=== PATIENT | female | born 2000 | race Caucasian/White ===

== ENCOUNTER 2022-05-05 21:20 | Emergency (ER) | payer MEDICAID ==
[~2022-05-05] VITALS: Ht 170.2 cm; Wt 79.4 kg
[2022-05-05 21:30] VITALS: BP 140/95
--- NOTE | 2022-05-05 21:46 | ED General ---
General Chief Complaint: Rect Problems Stated Complaint: RECTAL BLEEDING Source of Information: Patient Exam Limitations: No Limitations History of Present Illness Date Seen by Provider: May 05, 2022 Time Seen by Provider: 21:35 Initial Comments 21-year-old female presents to the ED with complaints of rectal bleeding starting at 9 PM. States she went to the bathroom thinking that she had to have a bowel movement, and passed a lot of bright red blood. Denies history of rectal bleeding. Denies constipation. States she had a normal soft bowel movement about 4 hours before. Denies black tarry stools, states fevers stools have been brown. Denies fevers, dizziness, chest pain, shortness of air, abdominal pain, nausea/vomiting, diarrhea, constipation. Patient's heart rate is elevated, patient states her heart rate is always greater than 100. Allergies and Home Medications Patient Home Medication List Home Medication List Reviewed: Yes Review of Systems Review of Systems Constitutional: see HPI Past Iswkyog-Hikxom-Suaxwt Hx Patient Social History Tobacco Use?: No Use of E-Cig and/or Vaping dev: No Substance use?: No Alcohol Use?: No Immunizations Up To Date Influenza Vaccine Up-to-Date: Yes; Up-to-Date First/Initial COVID19 Vaccinat: 2020 Second COVID19 Vaccination Hardeep: 2020 Third COVID19 Vaccination Date: NONE COVID19 Vaccine [employer]: Habbits Physical Exam Vital Signs Vital Signs - First Documented 05/05/22 21:30 Temp 36.2 Pulse 121 Resp 20 B/P (MAP) 140/95 (110) Pulse Ox 100 O2 Delivery Room Air Capillary Refill : Height, Weight, BMI Height: '" Weight: lbs. oz. kg; BMI Method: General Appearance: No Apparent Distress, WD/WN Neck: Normal Inspection, Supple Respiratory: Lungs Clear, Normal Breath Sounds, No Accessory Muscle Use, No Respiratory Distress Cardiovascular: No Edema, No Gallop, No JVD, No Murmur, Tachycardia Gastrointestinal: Normal Bowel Sounds, No Organomegaly, No Pulsatile Mass, Non Tender, Soft Rectal: Normal Exam, Normal Rectal Tone, Heme Positive Stool; No Hemorrhoids, No Mass, No Tenderness Extremity: Normal Inspection, Normal Range of Motion Neurologic/Psychiatric: Alert, Oriented x3, Normal Mood/Affect Skin: Normal Color, Warm/Dry Progress/Results/Core Measures Suspected Sepsis SIRS Temperature: Pulse: Respiratory Rate: Laboratory Tests 05/05/22 22:35: White Blood Count 5.8 Blood Pressure / Mean: Laboratory Tests 05/05/22 22:35: Creatinine 0.77, Platelet Count 220, Total Bilirubin 0.3 Results/Orders Lab Results Laboratory Tests Test 05/05/22 22:35 Range/Units White Blood Count 5.8 4.3-11.0 10^3/uL Red Blood Count 4.71 3.80-5.11 10^6/uL Hemoglobin 13.3 11.5-16.0 g/dL Hematocrit 40 35-52 % Mean Corpuscular Volume 84 80-99 fL Mean Corpuscular Hemoglobin 28 25-34 pg Mean Corpuscular Hemoglobin Concent 34 32-36 g/dL Red Cell Distribution Width 13.0 10.0-14.5 % Platelet Count 220 130-400 10^3/uL Mean Platelet Volume 10.5 9.0-12.2 fL Immature Granulocyte % (Auto) 0 % Neutrophils (%) (Auto) 52 42-75 % Lymphocytes (%) (Auto) 37 12-44 % Monocytes (%) (Auto) 10 0-12 % Eosinophils (%) (Auto) 2 0-10 % Basophils (%) (Auto) 1 0-10 % Neutrophils # (Auto) 3.0 1.8-7.8 10^3/uL Lymphocytes # (Auto) 2.1 1.0-4.0 10^3/uL Monocytes # (Auto) 0.6 0.0-1.0 10^3/uL Eosinophils # (Auto) 0.1 0.0-0.3 10^3/uL Basophils # (Auto) 0.0 0.0-0.1 10^3/uL Immature Granulocyte # (Auto) 0.0 0.0-0.1 10^3/uL Sodium Level 143 135-145 MMOL/L Potassium Level 3.5 L 3.6-5.0 MMOL/L Carbon Dioxide Level 21 21-32 MMOL/L Anion Gap 10 5-14 MMOL/L Blood Urea Nitrogen 9 7-18 MG/DL Creatinine 0.77 0.60-1.30 MG/DL Estimat Glomerular Filtration Rate 114 BUN/Creatinine Ratio 12 Glucose Level 74 70-105 MG/DL Calcium Level 9.4 8.5-10.1 MG/DL Corrected Calcium 9.1 8.5-10.1 MG/DL Total Bilirubin 0.3 0.1-1.0 MG/DL Aspartate Amino Transf (AST/SGOT) 17 5-34 U/L Alanine Aminotransferase (ALT/SGPT) 18 0-55 U/L Alkaline Phosphatase 94 40-136 U/L Total Protein 7.8 6.4-8.2 GM/DL Albumin 4.4 3.2-4.5 GM/DL My Orders Orders - AURELIO LANDAVERDE APRN Occult Blood Stool (05/05/22 21:44) Cbc With Automated Diff (05/05/22 21:55) Comprehensive Metabolic Panel (05/05/22 21:55) Vital Signs/I&O 05/05/22 21:30 Temp 36.2 Pulse 121 Resp 20 B/P (MAP) 140/95 (110) Pulse Ox 100 O2 Delivery Room Air Capillary Refill : Progress Note #1: Time: 21:45 Progress Note Patient seen and evaluated, resting comfortably in bed, no acute distress. Bedside fecal occult positive. Will obtain baseline labs, CBC, CMP. If normal, will refer to primary to get a scope. Progress Note #2: Time: 23:08 Progress Note Labs reviewed. Departure Impression Primary Impression: Rectal bleeding Disposition: HOME, SELF-CARE Condition: Stable Departure-Patient Inst. Decision time for Depature: 23:09 Referrals: [facility] ([facility]Family) Primary Care Physician Patient Instructions: Bloody Stools, Adult ED, Clear Liquid Diet Add. Discharge Instructions: Stay on a clear liquid diet for the next 24 hours to give your bowels a rest. You may expect to see more bleeding during the next couple of bowel movements. Return if you have an increase in bleeding, passing blood clots, dizziness, shortness of breath, chest pain, or any other new, concerning or worsening symptoms. Follow-up with your primary care provider, you may need a scope if this continues. All discharge instructions reviewed with patient and/or family. Voiced understanding. AURELIO LANDAVERDE APRN May 05, 2022 21:46
[2022-05-05 22:42] LABS: BASOPHILS % (AUTO) 1 % (0-10); EOSINOPHILS # (AUTO) 0.1 10^3/uL (0.0-0.3); EOSINOPHILS % (AUTO) 2 % (0-10); HEMATOCRIT 40 % (35-52); HEMOGLOBIN 13.3 g/dL (11.5-16.0); LYMPHOCYTES # (AUTO) 2.1 10^3/uL (1.0-4.0); LYMPHOCYTES % (AUTO) 37 % (12-44); MEAN CORPUSCULAR HEMOGLOBIN 28 pg (25-34); MEAN CORPUSCULAR HGB CONC 34 g/dL (32-36); MEAN CORPUSCULAR VOLUME 84 fL (80-99); MEAN PLATELET VOLUME 10.5 fL (9.0-12.2); MONOCYTES # (AUTO) 0.6 10^3/uL (0.0-1.0); MONOCYTES % (AUTO) 10 % (0-12); NEUTROPHILS % (AUTO) 52 % (42-75); PLATELET COUNT 220 10^3/uL (130-400); WHITE BLOOD COUNT 5.8 10^3/uL (4.3-11.0)
[2022-05-05 22:56] LABS: ALBUMIN 4.4 GM/DL (3.2-4.5)
[2022-05-05 22:57] LABS: POTASSIUM 3.5 MMOL/L (3.6-5.0)
[2022-05-05 22:58] LABS: CALCIUM 9.4 MG/DL (8.5-10.1)
[2022-05-05 22:59] LABS: TOTAL PROTEIN 7.8 GM/DL (6.4-8.2)
[2022-05-05 23:01] LABS: BILIRUBIN,TOTAL 0.3 MG/DL (0.1-1.0)
[2022-05-05 23:03] LABS: CREATININE SERUM 0.77 MG/DL (0.60-1.30)
== END 2022-05-05 23:18 | disposition home or self-care (01) ==
LOC: EDUNIT# 21:20 → ER 21:25
DX: K62.5 Hemorrhage of anus and rectum (principal)
CPT/HCPCS: 36415; 80053; 82274; 85025